=== PATIENT | male | born 1985 | race Caucasian/White ===

== ENCOUNTER 2019-09-29 17:19 | Emergency (ER) | payer OTHER ==
[~2019-09-29] VITALS: Ht 177.8 cm; Wt 113.4 kg
--- NOTE | 2019-09-29 18:53 | PHYS DOC ---
Past Medical History Past Medical History: Other Additional Past Medical Histor: fatty liver (QUINTIN TIPTON APRN) Past Surgical History: Other Additional Past Surgical Histo: wisdom teeth; pyelonidal cyst (QUINTIN TIPTON APRN) Alcohol Use: Occasionally Drug Use: Marijuana (QUINTIN TIPTON APRN) Attending Signature I have participated in the care of this patient and I have reviewed and agree with all pertinent clinical information above including history, exam, and recommendations. (KRISSY MITCHELL MD) Adult General Chief Complaint Chief Complaint: DIZZY/LIGHT HEADED HPI HPI Patient is a 34 year old [male] who presents with [vomiting and dizziness. Patient reports fever last 4 days he has been feeling nauseous and having several muscles of emesis. Reports over the last 2 days he has been vomiting anytime he tries to eat anything. Reports he had called his PCP office today, wasn't able to get in, but they were able to call in a prescription for Zofran, which he had taken 2 doses, but has continued to feel nauseous afterwards. Also reports he has felt increasing dizziness over the last few days. Reports he has to stay in his right side, otherwise he feels dizzy. Denies any recent fever, denies recent illness or upper respiratory infection. Denies any recent medications] (QUINTIN TIPTON APRN) Review of Systems Review of Systems Constitutional: Denies fever or chills [] Eyes: Denies change in visual acuity, redness, or eye pain reports his vision seems normal, denies any photophobia [] HENT: Denies nasal congestion or sore throat [] Respiratory: Denies cough or shortness of breath [] Cardiovascular: No additional information not addressed in HPI [] GI: Denies abdominal pain, reports several episodes of emesis, reports feeling nauseous. Denies any diarrhea] : Denies dysuria or hematuria [] Musculoskeletal: Denies back pain or joint pain [] Integument: Denies rash or skin lesions [] Neurologic: Denies headache, focal weakness or sensory changes [] Endocrine: Denies polyuria or polydipsia [] All other systems were reviewed and found to be within normal limits, except as documented in this note. (QUINTIN TIPTON APRN) Current Medications Current Medications Current Medications Medications (Trade) Dose Ordered Sig/Marisela Start Time Stop Time Status Last Admin Dose Admin Diphenhydramine HCl (Benadryl) 25 mg 1X ONCE 09/29/19 19:00 09/29/19 19:01 DC 09/29/19 19:12 25 MG Metoclopramide HCl (Reglan Vial) 10 mg 1X ONCE 09/29/19 19:00 09/29/19 19:01 DC 09/29/19 19:12 10 MG Sodium Chloride 1,000 ml @ 1,000 mls/hr 1X ONCE 09/29/19 19:00 09/29/19 19:59 DC 09/29/19 19:11 1,000 MLS/HR (KRISSY MITCHELL MD) Allergies Allergies Allergies Coded Allergies Type Severity Reaction Last Updated Verified No Known Drug Allergies 03/07/15 No (KRISSY MITCHELL MD) Physical Exam Physical Exam Constitutional: Well developed, well nourished, no acute distress, non-toxic harish earance. [] HENT: Normocephalic, atraumatic, bilateral external ears normal, oropharynx moist, no oral exudates, nose normal. [] Eyes: PERRLA, EOMI, conjunctiva normal, no discharge. Horizontal nystagmus noted to the right, with small amount of vertical nystagmus noted also. [] Neck: Normal range of motion, no tenderness, supple, no stridor. [] Cardiovascular:Heart rate regular rhythm, no murmur [] Lungs & Thorax: Bilateral breath sounds clear to auscultation [] Abdomen: Bowel sounds normal, soft, no tenderness, no masses, no pulsatile masses. [] Skin: Warm, dry, no erythema, no rash. [] Back: No tenderness, no CVA tenderness. [] Extremities: No tenderness, no cyanosis, no clubbing, ROM intact, no edema. [] Neurologic: Alert and oriented X 3, normal motor function, normal sensory function, no focal deficits noted. [] Psychologic: Affect normal, judgement normal, mood normal. [] (QUINTIN TIPTON APRN) Current Patient Data Vital Signs Vital Signs Date Time Temp Pulse Resp B/P (MAP) Pulse Ox O2 Delivery O2 Flow Rate FiO2 09/29/19 20:44 64 16 95 09/29/19 18:17 98.9 160/85 (110) Room Air 98.9 (KRISSY MITCHELL MD) Lab Values Laboratory Tests Test 09/29/19 19:08 White Blood Count 14.8 x10^3/uL (4.0-11.0) H Red Blood Count 5.70 x10^6/uL (4.30-5.70) Hemoglobin 16.2 g/dL (13.0-17.5) Hematocrit 47.0 % (39.0-53.0) Mean Corpuscular Volume 82 fL (79-100) Mean Corpuscular Hemoglobin 29 pg (25-35) Mean Corpuscular Hemoglobin Concent 35 g/dL (31-37) Red Cell Distribution Width 12.6 % (11.5-14.5) Platelet Count 329 x10^3/uL (140-400) Neutrophils (%) (Auto) 75 % (31-73) H Lymphocytes (%) (Auto) 18 % (24-48) L Monocytes (%) (Auto) 6 % (0-9) Eosinophils (%) (Auto) 0 % (0-3) Basophils (%) (Auto) 1 % (0-3) Neutrophils # (Auto) 11.1 x10^3/uL (1.8-7.7) H Lymphocytes # (Auto) 2.6 x10^3/uL (1.0-4.8) Monocytes # (Auto) 1.0 x10^3/uL (0.0-1.1) Eosinophils # (Auto) 0.0 x10^3/uL (0.0-0.7) Basophils # (Auto) 0.1 x10^3/uL (0.0-0.2) Sodium Level 140 mmol/L (136-145) Potassium Level 3.5 mmol/L (3.5-5.1) Chloride Level 101 mmol/L (98-107) Carbon Dioxide Level 27 mmol/L (21-32) Anion Gap 12 (6-14) Blood Urea Nitrogen 18 mg/dL (8-26) Creatinine 1.2 mg/dL (0.7-1.3) Estimated GFR (Cockcroft-Gault) 68.9 BUN/Creatinine Ratio 15 (6-20) Glucose Level 110 mg/dL (70-99) H Calcium Level 10.3 mg/dL (8.5-10.1) H Total Bilirubin 0.7 mg/dL (0.2-1.0) Aspartate Amino Transferase (AST) 19 U/L (15-37) Alanine Aminotransferase (ALT) 34 U/L (16-63) Alkaline Phosphatase 56 U/L (46-116) Troponin I Quantitative < 0.017 ng/mL (0.000-0.055) Total Protein 9.2 g/dL (6.4-8.2) H Albumin 4.8 g/dL (3.4-5.0) Albumin/Globulin Ratio 1.1 (1.0-1.7) Laboratory Tests 09/29/19 19:08 Laboratory Tests 09/29/19 19:08 (KRISSY MITCHELL MD) Lab Values Laboratory Tests Test 09/29/19 19:08 White Blood Count 14.8 x10^3/uL (4.0-11.0) H Red Blood Count 5.70 x10^6/uL (4.30-5.70) Hemoglobin 16.2 g/dL (13.0-17.5) Hematocrit 47.0 % (39.0-53.0) Mean Corpuscular Volume 82 fL (79-100) Mean Corpuscular Hemoglobin 29 pg (25-35) Mean Corpuscular Hemoglobin Concent 35 g/dL (31-37) Red Cell Distribution Width 12.6 % (11.5-14.5) Platelet Count 329 x10^3/uL (140-400) Neutrophils (%) (Auto) 75 % (31-73) H Lymphocytes (%) (Auto) 18 % (24-48) L Monocytes (%) (Auto) 6 % (0-9) Eosinophils (%) (Auto) 0 % (0-3) Basophils (%) (Auto) 1 % (0-3) Neutrophils # (Auto) 11.1 x10^3/uL (1.8-7.7) H Lymphocytes # (Auto) 2.6 x10^3/uL (1.0-4.8) Monocytes # (Auto) 1.0 x10^3/uL (0.0-1.1) Eosinophils # (Auto) 0.0 x10^3/uL (0.0-0.7) Basophils # (Auto) 0.1 x10^3/uL (0.0-0.2) Sodium Level 140 mmol/L (136-145) Potassium Level 3.5 mmol/L (3.5-5.1) Chloride Level 101 mmol/L (98-107) Carbon Dioxide Level 27 mmol/L (21-32) Anion Gap 12 (6-14) Blood Urea Nitrogen 18 mg/dL (8-26) Creatinine 1.2 mg/dL (0.7-1.3) Estimated GFR (Cockcroft-Gault) 68.9 BUN/Creatinine Ratio 15 (6-20) Glucose Level 110 mg/dL (70-99) H Calcium Level 10.3 mg/dL (8.5-10.1) H Total Bilirubin 0.7 mg/dL (0.2-1.0) Aspartate Amino Transferase (AST) 19 U/L (15-37) Alanine Aminotransferase (ALT) 34 U/L (16-63) Alkaline Phosphatase 56 U/L (46-116) Troponin I Quantitative < 0.017 ng/mL (0.000-0.055) Total Protein 9.2 g/dL (6.4-8.2) H Albumin 4.8 g/dL (3.4-5.0) Albumin/Globulin Ratio 1.1 (1.0-1.7) Laboratory Tests 09/29/19 19:08 Laboratory Tests 09/29/19 19:08 (QUINTIN TIPTON APRN) EKG EKG [] (QUINTIN TIPTON APRN) Radiology/Procedures Radiology/Procedures No acute process Per radiologisty Steven Alcala MD[] (QUINTIN TIPTON APRN) Course & Med Decision Making Course & Med Decision Making Pertinent Labs and Imaging studies reviewed. (See chart for details) [Following fluids and antiemetics, patient reports he is feeling a lot better at this time. Reports he feels could not to go home, states no more dizziness when he sits up or rolls over. Discuss continued use of antiemetics, discussed hydration at home, discussed follow-up as needed with primary care] (QUINTIN TIPTON APRN) Dragon Disclaimer Dragon Disclaimer This electronic medical record was generated, in whole or in part, using a voice recognition dictation system. (QUINTIN TIPTON APRN) Departure Departure Impression: Primary Impression: Vertigo Additional Impression: Mild dehydration Disposition: 01 HOME, SELF-CARE Condition: STABLE Referrals: Swetha HAWKINS MD (PCP) Patient Instructions: Dehydration, Adult, [id number], Vertigo Additional Instructions: As we discussed, take the medications for nausea as prescribed and as needed. Make sure you're drinking plenty of fluids, Gatorade, water, etc stay hydrated o [place] the next few days. Try to rest. He can try some [id number] meclizine, which is commonly found in Dramamine formulation, one 25 mg tablet every 6 hours, if he starts to feel dizzy. Scripts Metoclopramide Hcl (REGLAN) 10 Mg Tablet 1 TAB PO TID for 5 Days, #15 TAB 0 Refills before food and bedtime Prov: QUINTIN TIPTON APRN 09/29/19 Problem Qualifiers QUINTIN TIPTON APRN Sep 29, 2019 18:53 KRISSY MITCHELL MD Sep 30, 2019 02:34
[2019-09-29] MEDS ORDERED: IV NORMAL SALINE 1000ML BAG 1,000 ML IV ONE (19:00)
[2019-09-29] MEDS ORDERED: METOCLOPRAMIDE HCL 10 MG/2 ML VIAL. IVP ONE (19:00)
[2019-09-29] MEDS ORDERED: diphenhydrAMINE 50 MG/ML VIAL IVP ONE (19:00)
--- NOTE | 2019-09-29 19:19 | RAD ---
Examination: CT HEAD WO CONTRAST History: Vertigo Comparison/Correlation: None Findings: Axial images of the head were obtained without contrast. Sagittal and coronal reformatted images were provided. Ventricles are normal size. No intracranial hemorrhage, midline shift, or mass effect. Bony structures are unremarkable. Globes and optic nerves are unremarkable. External auditory canals are unremarkable. Internal auditory canals are grossly unremarkable. Impression: No acute process. PQRS Compliance Statement: One or more of the following individualized dose reduction techniques were utilized for this examination: 1. Automated exposure control 2. Adjustment of the mA and/or kV according to patient size 3. Use of iterative reconstruction technique Electronically signed by: Zane Alcala MD (09/29/2019 7:16 PM) [facility]
[2019-09-29 19:26] LABS: BASO # 0.1 x10^3/uL (0.0-0.2); BASO % 1 % (0-3); EOS % 0 % (0-3); HEMOGLOBIN 16.2 g/dL (13.0-17.5); LYMPH # 2.6 x10^3/uL (1.0-4.8); LYMPH % 18 % (24-48); MEAN CORPUSCULAR HEMOGLOBIN 29 pg (25-35); MEAN CORPUSCULAR HGB CONC 35 g/dL (31-37); MEAN CORPUSCULAR VOLUME 82 fL (79-100); MONO % 6 % (0-9); NEUT # 11.1 x10^3/uL (1.8-7.7); NEUT % 75 % (31-73); PLATELET COUNT 329 x10^3/uL (140-400); RED CELL DISTRIBUTION WIDTH 12.6 % (11.5-14.5); WHITE BLOOD COUNT 14.8 x10^3/uL (4.0-11.0)
[2019-09-29 19:40] LABS: CALCIUM 10.3 mg/dL (8.5-10.1); CREATININE 1.2 mg/dL (0.7-1.3); GFR 68.9; POTASSIUM 3.5 mmol/L (3.5-5.1)
[2019-09-29 19:44] LABS: ALBUMIN 4.8 g/dL (3.4-5.0); ALBUMIN/GLOBULIN RATIO 1.1 (1.0-1.7); TOTAL BILIRUBIN 0.7 mg/dL (0.2-1.0); TOTAL PROTEIN 9.2 g/dL (6.4-8.2)
[2019-09-29] MEDS ORDERED: METO10TA81 PO (20:34)
[2019-09-29 20:44] VITALS: BP 160/78
== END 2019-09-29 20:50 | disposition home or self-care (01) ==
LOC: ER 17:19
DX: E86.0 Dehydration (principal); R42 Dizziness and giddiness
CPT/HCPCS: 36415; 70450; 80053; 84484; 85025; 96361; 96374; 96375; 99285; J1200; J2765; J7030

== ENCOUNTER → 2019-10-25 | Outpatient (CLI) | payer OTHER ==
[2019-09-29 20:44] VITALS: BP 160/78
[~2019-10-25] MED LIST: METO10TA81 PO
--- NOTE | 2019-10-25 16:35 | KCIC ---
BRAIN W/O CONTRAST History: Vertigo Technique: Multiplanar, multi sequential MR imaging was performed of the brain without contrast. Comparison: Head CT September 29, 2019 Findings: No acute infarct. No intracranial hemorrhage. No mass effect. No hydrocephalus. Prominence of the retrocerebellar CSF space versus arachnoid cyst, unchanged. Punctate focus of T2/FLAIR hyperintensity within the left frontal white matter, likely within normal range for age. No signal abnormality within the bilateral cerebellopontine angles or internal auditory canals. Imaged orbits are unremarkable. Right inferior maxillary sinus mucous retention cyst or polyp. Mastoid air cells are clear. Impression: 1. No acute intracranial abnormality. Electronically signed by: Travon Higgins DO (10/25/2019 4:32 PM) [id number]
== END | disposition home or self-care (01) ==
LOC: KCIC MRI 10:46
PROVIDERS: ATTEND Family Medicine
DX: R42 Dizziness and giddiness (principal)
CPT/HCPCS: 70551